=== PATIENT | female | born 1950 | race Caucasian/White ===

== ENCOUNTER 2017-04-22 13:12 | Emergency (ER) | payer BC ==
[~2017-04-22] VITALS: Ht 160 cm; Wt 51.7 kg
[2017-04-22] MEDS ORDERED: SPIRIVA18 MCG INH (13:22)
[2017-04-22] MEDS ORDERED: PREDNISONE20 MG ORAL (13:44)
[2017-04-22] MEDS ORDERED: Albuterol ud Inhalation HHN ONE (13:45)
[2017-04-22 13:55] VITALS: BP 115/62
[2017-04-22 13:57] VITALS: BP 115/62
--- NOTE | 2017-04-22 15:55 | Emergency Room Report ---
History of Present Illness General Chief Complaint: Asthma Source: Patient Present Illness HPI [id number] sent by PMD for dry cough for 3 days, history of asthma. Got albuterol Tx in PMD's office 3 days ago with improvement but no improvement with home pump. Finished 5 days of 20mg daily prednisone today Never been intubated, hospitalized for asthma Allergies: Coded Allergies: CODEINE (Verified Allergy, Unknown, Severe hives, 04/22/17) Patient History Past Medical History: asthma Past Surgical History: none Pertinent Family History: none Social History: Denies: alcohol use, drug use, smoking Now: No Immunizations: UTD Reviewed Nursing Documentation: PMH: Agreed, PSxH: Agreed Nursing Documentation-PMH Past Medical History: No History, Except For Hx Asthma: Yes Review of Systems All Other Systems: negative except mentioned in HPI Physical Exam Vital Signs Date Time Temp Pulse Resp B/P Pulse Ox O2 Delivery O2 Flow Rate FiO2 04/22/17 13:15 97.9 90 16 115/62 98 Room Air Sp02 EP Interpretation: reviewed General Appearance: normal inspection, well appearing, no apparent distress, alert Head: normocephalic, atraumatic Eyes: bilateral eye EOMI, bilateral eye PERRL ENT: normal ENT inspection, hearing grossly normal, normal voice Neck: normal inspection, full range of motion, supple, no bony tend Respiratory: normal inspection, lungs clear, normal breath sounds, no respiratory distress, no retraction, no accessory muscle use, wheezing, other - mild end exp wheezing Cardiovascular #1: regular rate, rhythm, no edema Gastrointestinal: normal inspection, normal bowel sounds, non tender, soft, no guarding, no hernia Genitourinary: no CVA tenderness Musculoskeletal: normal inspection, back normal, normal range of motion, Carmella' s Sign negative Neurologic: normal inspection, alert, oriented x3, responsive, beader tender III-XII nml as tested, motor strength/tone normal, speech normal Psychiatric: normal inspection, judgement/insight normal, mood/affect normal Skin: normal inspection, normal color, no rash Medical Decision Making Diagnostic Impression: Primary Impression: Asthma attack ER Course Mild asthma attack VSS. Afebrile No hypoxia Improved with 1 neb Has MDI at home Rx additional 3 day course of prednisone Had CXR 3 days ago, didnt show PNA per patient Has close PMD followup DC home Last Vital Signs Date Time Temp Pulse Resp B/P Pulse Ox O2 Delivery O2 Flow Rate FiO2 04/22/17 13:57 97.9 87 16 115/62 98 Room Air Status: improved Disposition: HOME, SELF-CARE Condition: Improved Scripts Prednisone* (PREDNISONE*) 20 Mg Tablet 20 MG ORAL BID for 3 Days, #6 TAB 0 Refills Prov: JAYSON GALEAS M.D. 04/22/17 Referrals: NON PHYSICIAN (PCP) Patient Instructions: Asthma, Adult Additional Instructions: -Take prednisone twice daily next 3 days -Use asthma tx/pump as needed for cough, shortnes of breath - Follow up with primary care doctor in 2-3 days JAYSON GALEAS M.D. Apr 22, 2017 15:55
== END 2017-04-22 13:57 | disposition home or self-care (01) ==
LOC: EMR 13:45
DX: J45.901 Unspecified asthma with (acute) exacerbation (principal); Z88.6 Allergy status to analgesic agent
CPT/HCPCS: 94640; 99283

== ENCOUNTER 2017-05-13 18:27 | Inpatient (IN) | payer BC ==
[~2017-05-13] VITALS: Ht 157.5 cm; Wt 50.8 kg
[~2017-05-13 18:27] MED LIST: PREDNISONE20 MG ORAL; SPIRIVA18 MCG INH
[2017-05-13 18:49] VITALS: BP 161/74
[2017-05-13] MEDS: Albuterol ud Inhalation HHN SCH ×3 (19:13→19:44)
[2017-05-13] MEDS ORDERED: Solu-MEDROL 125mg Inj IVP ONE (19:15)
[2017-05-13 19:24] LABS: APPEARANCE,URINE CLEAR; KETONES,URINE NEGATIVE (NEGATIVE); LEUKOCYTE ESTERASE ,URINE NEGATIVE (NEGATIVE); NITRITE,URINE NEGATIVE (NEGATIVE); PH,URINE 6 (4.5-8.0); PROTEIN,URINE NEGATIVE (NEGATIVE); UROBILINOGEN,URINE NORMAL MG/DL (0.0-1.0)
[2017-05-13 19:57] LABS: BASOPHILS % (AUTO) 1.4 % (0.0-2.0); EOSINOPHILS % (AUTO) 9.1 % (0.0-3.0); LYMPHOCYTES % (AUTO) 30.2 % (20.0-45.0); MEAN CORPUSCULAR HEMOGLOBIN 32.5 PG (27.0-31.0); MEAN CORPUSCULAR HGB CONC 34.6 G/DL (32.0-36.0); MEAN CORPUSCULAR VOLUME 94 FL (80-99); MEAN PLATELET VOLUME 5.7 FL (6.5-10.1); MONOCYTES % (AUTO) 6.4 % (1.0-10.0); NEUTROPHILS % (AUTO) 52.9 % (45.0-75.0); PLATELET COUNT 262 K/UL (150-450); RED BLOOD COUNT 4.29 M/UL (4.20-5.40); RED CELL DISTRIBUTION WIDTH 11.9 % (11.6-14.8); WHITE BLOOD COUNT 7.9 K/UL (4.8-10.8)
[2017-05-13 20:05] LABS: TROPONIN I < 0.30 ng/mL (<=0.30)
[2017-05-13 20:08] LABS: ALANINE AMINOTRANSFERASE 23 U/L (3-33); ALBUMIN/GLOBULIN RATIO 1.7 (1.0-2.7); ANION GAP 12 (5-15); ASPARTATE AMINO TRANSFERASE 20 U/L (5-40); CALCIUM 10.2 mg/dL (8.6-10.2); CARBON DIOXIDE 26 mEQ/L (20-30); CHLORIDE 103 mEQ/L (98-107); CREATININE 0.7 mg/dL (0.5-0.9); GLOMERULAR FILTRATION RATE > 60 mL/min (>60); HEMOLYSIS 3; SODIUM 141 mEQ/L (135-145); TOTAL PROTEIN 7.5 g/dL (6.6-8.7)
--- NOTE | 2017-05-13 20:08 | Emergency Room Report ---
History of Present Illness General Chief Complaint: Dyspnea/Respdistress Source: Medical Record Present Illness HPI 66-year-old female presents to ED complaining of cough and shortness of breath. Notes having the symptoms for one month. Patient was told that she may have asthma or COPD. Patient is on home oxygen. Patient states the last one month she's had shortness of breath. and a cough. Cough is productive with phlegm. Denies chest pain. Denies fevers or chills. Patient states she's tried her home medications without much relief. Denies any leg swelling. No other aggravating or relieving factors. Denies any other associated symptoms Allergies: Coded Allergies: CODEINE (Verified Allergy, Unknown, Severe hives, 04/22/17) Patient History Past Medical History: asthma Past Surgical History: none Pertinent Family History: none Social History: Denies: alcohol use, drug use, smoking Now: No Immunizations: UTD Reviewed Nursing Documentation: PMH: Agreed, PSxH: Agreed Nursing Documentation-PMH Past Medical History: No History, Except For Hx Asthma: Yes Review of Systems All Other Systems: negative except mentioned in HPI Physical Exam Vital Signs Date Time Temp Pulse Resp B/P Pulse Ox O2 Delivery O2 Flow Rate FiO2 05/13/17 18:32 98.1 95 18 165/77 96 Room Air Sp02 EP Interpretation: reviewed, normal General Appearance: no apparent distress, alert, GCS 15, non-toxic Head: normocephalic, atraumatic Eyes: bilateral eye PERRL, bilateral eye normal inspection ENT: hearing grossly normal, normal pharynx, no angioedema, normal voice Neck: full range of motion, supple/symm/no masses Respiratory: chest non-tender, lungs clear, normal breath sounds, speaking full sentences Cardiovascular #1: regular rate, rhythm, no edema Cardiovascular #2: 2+ carotid (R), 2+ carotid (L), 2+ radial (R), 2+ radial (L) , 2+ dorsalis pedis (R), 2+ dorsalis pedis (L) Gastrointestinal: normal bowel sounds, non tender, soft, non-distended, no guarding, no rebound Rectal: deferred Genitourinary: normal inspection, no CVA tenderness Musculoskeletal: back normal, gait/station normal, normal range of motion, non- tender Neurologic: alert, oriented x3, responsive, motor strength/tone normal, sensory intact, speech normal Psychiatric: judgement/insight normal, memory normal, mood/affect normal, no suicidal/homicidal ideation Reflexes: 3+ bicep (R), 3+ bicep (L), 3+ tricep (R), 3+ tricep (L), 3+ knee (R) , 3+ knee (L) Skin: normal color, no rash, warm/dry, well hydrated Lymphatic: no adenopathy Medical Decision Making Diagnostic Impression: Primary Impression: COPD exacerbation ER Course Hospital Course 66-year-old F presenting to ED with SOB x 1 month. h/o asthma vs copd Differential diagnoses include: Pneumonia, CHF exacerbation, pneumothorax, fluid overload Clinical course Patient placed on stretcher. 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 After initial history and physical, I ordered nebulizer treatments. I ordered labs, IV fluids, EKG, chest x-ray, blood cultures, UA. Labs - no leukocytosis noted, hemoglobin/hematocrit stable, electrolytes okay, lactate okay, troponins negative CXR - no infiltrates EKG - NSR, no acute changes interpreted by me She states that she feels better with the treatments but shortness of breath returns after treatment is completed . Patient states she does not feel better and wishes to be admitted. abx given Case discussed with Dr. Skinner and he agreed to the patient to his service for further care and support I feel this is a highly complex case requiring extensive working including EKG/ Rhythm strip, Xray/CT/US, Blood/urine lab work, repeat exams while in ED, and administration of strong opiates/narcotics for pain control, admission to hospital or close patient follow up. Diagnosis - COPD exacerbation Patient admitted to telemetry in serious condition Labs Test 05/13/17 18:44 05/13/17 19:35 05/13/17 22:50 Urine Color Pale yellow Urine Appearance Clear Urine pH 6 (4.5-8.0) Urine Specific [place] 1.010 (1.005-1.035) Urine Protein Negative (NEGATIVE) Urine Glucose (UA) Negative (NEGATIVE) Urine Ketones Negative (NEGATIVE) Urine Occult Blood Negative (NEGATIVE) Urine Nitrite Negative (NEGATIVE) Urine Bilirubin Negative (NEGATIVE) Urine Urobilinogen Normal MG/DL (0.0-1.0) Urine Leukocyte Esterase Negative (NEGATIVE) White Blood Count 7.9 K/UL (4.8-10.8) Red Blood Count 4.29 M/UL (4.20-5.40) Hemoglobin 13.9 G/DL (12.0-16.0) Hematocrit 40.2 % (37.0-47.0) Mean Corpuscular Volume 94 FL (80-99) Mean Corpuscular Hemoglobin 32.5 PG (27.0-31.0) Mean Corpuscular Hemoglobin Concent 34.6 G/DL (32.0-36.0) Red Cell Distribution Width 11.9 % (11.6-14.8) Platelet Count 262 K/UL (150-450) Mean Platelet Volume 5.7 FL (6.5-10.1) Neutrophils (%) (Auto) 52.9 % (45.0-75.0) Lymphocytes (%) (Auto) 30.2 % (20.0-45.0) Monocytes (%) (Auto) 6.4 % (1.0-10.0) Eosinophils (%) (Auto) 9.1 % (0.0-3.0) Basophils (%) (Auto) 1.4 % (0.0-2.0) Sodium Level 141 mEQ/L (135-145) Potassium Level 4.0 mEQ/L (3.4-4.9) Chloride Level 103 mEQ/L (98-107) Carbon Dioxide Level 26 mEQ/L (20-30) Anion Gap 12 (5-15) Blood Urea Nitrogen 20 mg/dL (7-23) Creatinine 0.7 mg/dL (0.5-0.9) Estimat Glomerular Filtration Rate > 60 mL/min (>60) Glucose Level 91 mg/dL (74-106) Calcium Level 10.2 mg/dL (8.6-10.2) Total Bilirubin 0.3 mg/dL (0.0-1.2) Aspartate Amino Transf (AST/SGOT) 20 U/L (5-40) Alanine Aminotransferase (ALT/SGPT) 23 U/L (3-33) Alkaline Phosphatase 86 U/L (35-104) Total Creatine Kinase 121 U/L (26-140) Creatine Kinase MB 2.2 ng/mL (< 3.8) Creatine Kinase MB Relative Index 1.8 Troponin I < 0.30 ng/mL (<=0.30) Pro-B-Type Natriuretic Peptide 42 pg/mL (0-125) Total Protein 7.5 g/dL (6.6-8.7) Albumin 4.8 g/dL (3.5-5.2) Globulin 2.7 g/dL Albumin/Globulin Ratio 1.7 (1.0-2.7) Lactic Acid Level 3.90 mmol/L (0.66-2.22) EKG Diagnostic Results Rate: normal Rhythm: NSR ST Segments: no acute changes ASA given to the pt in ED: No Rhythm Strip Diag. Results EP Interpretation: yes Rhythm: NSR, no PVC's, no ectopy Chest X-Ray Diagnostic Results Chest X-Ray Diagnostic Results : Chest X-Ray Ordered: Yes # of Views/Limited/Complete: 1 View Indication: Shortness of Breath EP Interpretation: Yes Interpretation: no consolidation, no effusion, no pneumothorax, no acute cardiopulmonary disease Impression: No acute disease Interpreting ER Provider: electronically signed by Gino Lo MD Last Vital Signs Date Time Temp Pulse Resp B/P Pulse Ox O2 Delivery O2 Flow Rate FiO2 05/13/17 19:55 88 13 99 Room Air 05/13/17 18:49 98.0 161/74 Status: improved Disposition: ADMITTED INPATIENT Condition: Serious GINO LO M.D. May 13, 2017 20:08
[2017-05-13 20:19] LABS: CKMB 2.2 ng/mL (< 3.8)
[2017-05-13 21:00] VITALS: BP 155/72
[2017-05-13] MEDS ORDERED: Azithromycin 500 MG in NS 275 ML IV SCH (21:15)
[2017-05-13] MEDS ORDERED: cefTRIAXone 1 GM in NS 55 ML IV SCH (21:15)
[2017-05-13 22:05] VITALS: BP 140/74
[2017-05-13] MEDS ORDERED: Azithromycin Inj IV ONE (22:07)
[2017-05-13 23:00] VITALS: BP 145/69
[2017-05-13] MEDS ORDERED: PredniSONE 20mg tab ORAL ONE (23:05)
[2017-05-13 23:43] LABS: REFLEX LACTIC ACID YES OR NO YES
[2017-05-13] MEDS: DuoNeb 0.5-3(2.5)mg/3ml neb HHN SCH (23:43)
[2017-05-14 00:50] VITALS: BP 150/72
[2017-05-14 02:35] VITALS: BP 139/53
[2017-05-14] MEDS: DuoNeb 0.5-3(2.5)mg/3ml neb HHN SCH ×3 (03:32→10:44)
[2017-05-14] MEDS ORDERED: CELECOXIB200 MG PO (03:50)
[2017-05-14] MEDS ORDERED: RESTASIS1 EACH BOTH EYES (03:50)
[2017-05-14] MEDS ORDERED: SIMVASTATIN20 MG PO (03:50)
[2017-05-14] MEDS ORDERED: PANTOPRAZOLE SO40 MG PO (03:50)
[2017-05-14] MEDS ORDERED: ZOLPIDEM TARTRA10 MG PO (03:50)
[2017-05-14] MEDS ORDERED: PROGESTERONE100 MG PO (03:50)
[2017-05-14] MEDS ORDERED: VITAMIN D1000 UNI1 ORAL (03:50)
[2017-05-14] MEDS ORDERED: FLAX SEED OIL1 EACH PO (03:53)
[2017-05-14] MEDS ORDERED: CETIRIZINE HCL10 M1 PO (03:54)
[2017-05-14 04:00] VITALS: BP 135/77
[2017-05-14 07:59] VITALS: BP 123/59
[2017-05-14] MEDS: cefTRIAXone 1 GM in NS 55 ML IVPB SCH (09:46)
[2017-05-14] MEDS: Heparin 5000 units/ml inj SUBQ SCH ×2 (09:51→22:11)
[2017-05-14] MEDS ORDERED: Albuterol ud Inhalation ONE (10:37)
[2017-05-14 11:27] VITALS: BP 138/62
--- NOTE | 2017-05-14 12:05 | Diagnostic Imaging Report ---
Indication: Cough Comparison: None A single view chest radiograph was obtained. Findings: Cardiomediastinal appearance is within normal limits for age. Pulmonary vascularity is appropriate. The diaphragmatic contour is smooth and costophrenic angles are sharp. No pleural effusions are identified. The bones are unremarkable. Impression: No acute findings
[2017-05-14] MEDS: Albuterol ud Inhalation HHN SCH ×3 (14:45→22:40)
[2017-05-14 20:00] VITALS: BP 124/68
[2017-05-15] VITALS: BP 147/73
--- NOTE | 2017-05-15 02:30 | History and Physical Report ---
DATE OF ADMISSION: 05/14/2017 CHIEF COMPLAINT: Shortness of breath. HISTORY OF PRESENT ILLNESS: This is a 66-year-old female, who presented to [facility] emergency department complaining of shortness of breath and cough. The patient is currently resting comfortably, but still complaining of shortness of breath paradoxically. The patient states that given a history of COPD, she is on home oxygen. Her primary care physician is Dr. Raman Amaro, whose office is based at [facility] and he is a engineering inspector. PAST MEDICAL HISTORY: COPD. HOME MEDICATIONS: Celebrex, cetirizine, cholecalciferol, cyclosporin in the form of Restasis, flaxseed, Protonix, prednisone, progesterone, simvastatin, Spiriva, and zolpidem. ALLERGIES: Codeine and ipratropium. FAMILY HISTORY: Unremarkable. SOCIAL HISTORY: Lives at home. HABITS: She is nonsmoker and nondrinker. There is no history of illicit drug abuse. REVIEW OF SYSTEMS: HEENT: Ears, nose, and throat are normal. Endocrine: No history of diabetes, thyroid, or adrenal problems. Respiratory: Please refer to history of present illness. Cardiovascular: She denies chest pain or palpitations. Gastrointestinal: No history of hematochezia, melena, hematemesis, diarrhea, or constipation. Genitourinary: She denies dysuria, frequency, urgency, or hematuria. Neurologic: No history of stroke, syncope, or Parkinson disease. PHYSICAL EXAMINATION: GENERAL: This is an elderly female, who is in no acute distress. VITAL SIGNS: Blood pressure is 140/60, pulse 80 and regular, respirations 20, and temperature 98 degrees. HEENT: Head is normocephalic and atraumatic. Pupils are equal, round, and reactive to light and accommodation consensually. NECK: Supple. Trachea is midline. There was no lymphadenopathy or thyromegaly. LUNGS: Clear to auscultation and percussion. HEART: Regular rate and rhythm without rubs, murmurs, or gallops. ABDOMEN: Soft and nontender. Bowel sounds were active. EXTREMITIES: No clubbing, cyanosis, or edema. NEUROLOGIC: She is alert and oriented x4. Cranial nerves II through XII intact. LABORATORY AND ANCILLARY DATA: CMP and CBC all within normal limits. Chest x-ray within normal limits. ASSESSMENT: Chronic obstructive pulmonary disease exacerbation. PLAN: Continue intravenous antibiotics, inhalers, and bronchodilators. Alon Rivero M.D. DR: Lorin JOB#: [id number] CC:
[2017-05-15] MEDS: Albuterol ud Inhalation HHN SCH ×4 (03:00→14:34)
[2017-05-15 08:00] VITALS: BP 114/72
[2017-05-15] MEDS: cefTRIAXone 1 GM in NS 55 ML IVPB SCH (10:29)
[2017-05-15] MEDS: Heparin 5000 units/ml inj SUBQ SCH (10:32)
[2017-05-15 11:40] VITALS: BP 121/79
--- NOTE | 2017-05-15 12:32 | General Progress Note ---
Assessment/Plan Assessment/Plan COPD Exacerbation resolving. DC home. DW pt's PMD Dr. Cisneros. Subjective Allergies: Coded Allergies: CODEINE (Verified Allergy, Unknown, Severe hives, 04/22/17) IPRATROPIUM (Verified Allergy, Unknown, 05/14/17) ipratropium bromide in nebulizer treatment Subjective Non productive cough. Objective Last 24 Hour Vital Signs Date Time Temp Pulse Resp B/P Pulse Ox O2 Delivery O2 Flow Rate FiO2 05/15/17 11:40 97.2 80 19 121/79 98 Room Air 05/15/17 10:54 77 20 99 Room Air 05/15/17 10:44 75 16 93 Room Air 05/15/17 08:00 97.1 92 19 114/72 92 Room Air 05/15/17 07:27 75 28 99 Room Air 05/15/17 07:17 74 16 Room Air 05/15/17 07:17 74 16 93 Room Air 05/15/17 04:00 82 05/15/17 03:04 Room Air 05/15/17 03:03 Room Air 05/15/17 00:00 82 05/15/17 00:00 97.9 86 19 147/73 95 Room Air 05/14/17 22:43 81 16 99 Room Air 05/14/17 22:42 80 16 96 Room Air 21 05/14/17 20:11 80 16 99 Room Air 05/14/17 20:10 75 16 96 Room Air 21 05/14/17 20:09 82 16 Room Air 05/14/17 20:00 89 05/14/17 20:00 97.0 91 18 124/68 99 Room Air 05/14/17 14:56 96 16 98 Room Air 05/14/17 14:45 90 16 95 Room Air 21 Intake and Output 05/14/17 05/15/17 18:59 06:59 Intake Total 1110 ml 360 ml Balance 1110 ml 360 ml Intake Oral 1110 ml 360 ml # Voids 3 3 # Bowel Movements 1 Height (Feet): 5 Height (Inches): 2.00 Weight (Pounds): 112 Objective CV RRR Lungs few wheezes. Abd SNT. BS + E No CCE QUINCY SNIDER May 15, 2017 12:32
[2017-05-15] MEDS ORDERED: ALBUTEROL2.5 MG/3 M HHN (12:36)
--- NOTE | 2017-05-17 18:50 | Discharge Summary ---
Discharge Summary Hospital Course Date of Admission May 14, 2017 at 00:34 Date of Discharge May 15, 2017 at 14:43 Admitting Diagnosis COPD/SHORTNESS OF BREATH HPI Melanie Castellon is a 66 year old female who was admitted on May 14, 2017 at 00:34 for Chronic Obstructive Pulmonary Disease And Hospital Course [id number] Discharge Discharge Disposition Patient was discharged to Home (01) Discharge Diagnoses: Hattie Parker NP May 17, 2017 18:50
--- NOTE | 2017-05-17 21:15 | Discharge Summary 2 SIG ---
DATE OF ADMISSION: 05/14/2017 DATE OF DISCHARGE: 05/15/2017 BRIEF HOSPITAL COURSE: The patient is a 66-year-old female, who presented to [facility] emergency department complaining of shortness of breath and cough. The patient has a history of chronic obstructive pulmonary disease and is on home O2. On evaluation at ED, laboratories showed no leukocytosis. Hemoglobin and hematocrit were stable. Chest x-ray done showed no infiltrates. EKG was in normal sinus rhythm with no acute changes. She was given nebulizer treatments, however, continued to have shortness of breath. She was then admitted to telemetry for acute chronic obstructive pulmonary disease exacerbation. She was given IV ceftriaxone and bronchodilators and was given prednisone. Symptoms improved. The patient was eventually discharged home. FINAL DIAGNOSIS: Acute chronic obstructive pulmonary disease exacerbation. DISPOSITION: The patient was discharged home. Advised to follow up with Dr. Blayne GRIJALVA. Alon Rivero M.D. I have been assigned to dictate discharge summary on this account and I was not involved in the patient's management. Hattie Parker N.P. DR: JAZMIN JOB#: [id number] CC:
== END 2017-05-15 14:43 | disposition home or self-care (01) | DRG 192 ==
LOC: EMR 19:21 → EDBEDREQ 23:39 → 2E 05-14 00:34
DX: J44.1 Chronic obstructive pulmonary disease with (acute) exacerbation (principal); Z88.6 Allergy status to analgesic agent; Z88.8 Allergy status to other drugs, medicaments and biological substances
CPT/HCPCS: 36415; 71010; 80053; 81003; 82550; 82553; 83605; 83880; 84484; 85025; 87040; 87081; 94640; 94664; J7620